=== PATIENT | female | born 1935 | race Caucasian/White ===

== ENCOUNTER → 2016-08-12 | Outpatient (CLI) | payer MEDICARE, BC ==
[~2016-08-12] MED LIST: ARICEPT10 MG PO; CALCIUM 600600 M2 PO; DECADRON 0.0.1 MG/ML PO; EYE PROMISE RESTORE PO; FLORINEF ACETA0.1 MG PO; IRON325 MG PO; KENALOG DENTAL P5 GM DT; KEPPRA 500MG500 MG PO; LEVOXYL0.05 MG PO; LEXAPRO 10MG10 MG PO; LYRICA 50MG CAP50 MG PO; NAMENDA 10MG TA10 MG PO; REQUIP XL6 MG PO; RESTORIL 1515 MG/CAP PO; SINEMET CR 50 M1 TER PO; STOOL SOFTENER100 M2 PO; UNABLE; XANAX 0.5MG0.5 MG PO
== END ==
LOC: COL.RAD 10:26
DX: K74.3 Primary biliary cirrhosis (principal); R93.2 Abnormal findings on diagnostic imaging of liver and biliary tract

== ENCOUNTER → 2016-11-25 | Outpatient (CLI) | payer MEDICARE, BC | LOC: COL.CARD 14:30 | DX: I95.9 Hypotension, unspecified (principal) ==

== ENCOUNTER 2017-02-02 16:52 | Emergency (ER) | payer MEDICARE, BC ==
[~2017-02-02] VITALS: Ht 165.1 cm; Wt 59.1 kg
[~2017-02-02 16:52] MED LIST changes: -DECADRON 0.0.1 MG/ML PO; -FLORINEF ACETA0.1 MG PO; -KENALOG DENTAL P5 GM DT; -KEPPRA 500MG500 MG PO; -LEVOXYL0.05 MG PO; -NAMENDA 10MG TA10 MG PO
[2017-02-02 17:00] VITALS: BP 124/60; TEMP 97.8
[2017-02-02] MEDS ORDERED: FLORINEF ACETA0.1 MG PO (17:24)
[2017-02-02] MEDS ORDERED: NAMENDA 10MG TA10 MG PO (17:25)
[2017-02-02] MEDS ORDERED: LEVOXYL0.05 MG PO (17:25)
[2017-02-02] MEDS ORDERED: DECADRON 0.0.1 MG/ML PO (17:26)
[2017-02-02] MEDS ORDERED: KEPPRA 500MG500 MG PO (17:27)
[2017-02-02] MEDS ORDERED: KENALOG DENTAL P5 GM DT (17:27)
[2017-02-02 18:10] LABS: BASO % 0.4 % (0.0-2.0); EOS # 0.1 (0.0-0.7); EOS % 1.8 % (0-4.0); GRAN # 1.7 (1.4-6.5); GRAN % 62.7 % (42.2-75.2); LYMPH # 0.6 (1.2-3.4); LYMPH % 21.8 % (20.0-51.0); MEAN CELL VOLUME 90 fl (80.0-100.0); MEAN CORPUSCULAR HGB CONC 34 g/dl (33.0-37.0); MEAN PLATELET VOLUME 11.7 fl (7.4-10.4); MONO # 0.4 (0.1-0.6); MONO % 12.9 % (1.7-9.3); RED BLOOD COUNT 3.87 M/mm3 (4.10-5.30); REDCELL DISTRIBUTION WIDTH-CV 13.4 % (11.5-14.5); WHITE BLOOD COUNT 2.7 K/mm3 (4.8-10.8)
[2017-02-02 18:12] LABS: PH 6 (5-8); SQUAMOUS EPITHELIAL 0-2 /hpf; URINE APPEARANCE Clear; URINE BACTERIA None Seen /hpf; URINE BILIRUBIN Negative (NEGATIVE); URINE BLOOD Negative (NEGATIVE); URINE COLOR Yellow; URINE GLUCOSE Negative (NEGATIVE); URINE KETONE Trace (NEGATIVE); URINE RBC 0-2 /hpf; URINE UROBILINOGEN Negative (NEGATIVE); URINE WBC 0-2 /hpf
[2017-02-02 18:18] LABS: ADJUSTED CALCIUM 9.3 mg/dL (8.4-10.2); ALBUMIN 3.7 gm/dL (3.5-5.0); CALCIUM 9.1 mg/dL (8.4-10.2); CREATININE, serum 0.73 mg/dL (0.52-1.25); POTASSIUM 3.9 mmol/L (3.4-5.0); TOTAL PROTEIN 7.6 gm/dL (6.4-8.2)
[2017-02-02 18:19] LABS: HEMATOCRIT 34.8 % (37.0-47.0); HEMOGLOBIN 11.8 g/dl (12.5-16.0); MEAN CORPUSCULAR HEMOGLOBIN 30 pg (27.0-31.0)
[2017-02-02 18:21] LABS: PLATELET COUNT 41 K/mm3 (130-400)
[2017-02-02 19:48] VITALS: PULSE 65
== END 2017-02-02 19:48 | disposition home or self-care (01) ==
LOC: COL.ER 16:52
PROVIDERS: Emergency Medicine
DX: G20 Parkinson's disease (principal); F41.9 Anxiety disorder, unspecified; Z86.2 Personal history of diseases of the blood and blood-forming organs and certain disorders involving the immune mechanism
CPT/HCPCS: J1885; J2060; J7030

== ENCOUNTER → 2018-02-07 | Outpatient (CLI) | payer MEDICARE, BC ==
[~2018-02-07] MED LIST changes: +DECADRON 0.0.1 MG/ML PO; +FLORINEF ACETA0.1 MG PO; +KENALOG DENTAL P5 GM DT; +KEPPRA 500MG500 MG PO; +LEVOXYL0.05 MG PO; +NAMENDA 10MG TA10 MG PO
[2018-02-07 15:38] LABS: MEAN CELL VOLUME 98 fl (80.0-100.0); MEAN CORPUSCULAR HGB CONC 33 g/dl (33.0-37.0); MEAN PLATELET VOLUME 10.9 fl (7.4-10.4); PLATELET COUNT 146 K/mm3 (130-400); RED BLOOD COUNT 2.94 M/mm3 (4.10-5.30); REDCELL DISTRIBUTION WIDTH-CV 15.6 % (11.5-14.5)
[2018-02-07 15:47] LABS: BILIRUBIN,TOTAL 0.9 mg/dL (0.0-1.0); CALCIUM 9.6 mg/dL (8.4-10.2); CREATININE, serum 1.3 mg/dL (0.52-1.25); POTASSIUM 4.4 mmol/L (3.4-5.0); TOTAL PROTEIN 5.7 gm/dL (6.4-8.2)
[2018-02-07 15:51] LABS: HEMATOCRIT 28.8 % (37.0-47.0); HEMOGLOBIN 9.5 g/dl (12.5-16.0); MEAN CORPUSCULAR HEMOGLOBIN 32 pg (27.0-31.0)
[2018-02-07 15:55] LABS: ANISOCYTOSIS 2+; BAND 38 % (0-10); HYPOCHROMIA 1+; LYMPHOCYTE 12 % (20.0-51.0); MICROCYTOSIS 1+; NEUTROPHILS 46 % (42.0-75.2); PLATELET ESTIMATE NORMAL (NORMAL)
== END ==
LOC: ZCOL.LAB 15:30
PROVIDERS: Nurse Practitioner Family
DX: K74.3 Primary biliary cirrhosis (principal)